=== PATIENT | male | born 2005 | race Caucasian/White ===

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

== ENCOUNTER → 2023-11-14 08:41 | Outpatient (BNVA) | payer MEDICAID, SELFPAY | PROVIDERS: PCP Family Medicine; Referring Provider Family Medicine; Visit Provider Nurse Practitioner | DX: S83.206A Unspecified tear of unspecified meniscus, current injury, right knee, initial encounter; W20.8XXA Other cause of strike by thrown, projected or falling object, initial encounter; M23.51 Chronic instability of knee, right knee; G89.29 Other chronic pain | CPT/HCPCS: 73560; 73565 ==